=== PATIENT | female | born 1995 | race Caucasian/White ===

== ENCOUNTER 2025-06-24 10:39 | Outpatient (AMB) | payer OTHER, SELFPAY ==
--- OUTSIDE RECORDS SUMMARY | 2025-05-28 13:30 | XMS_ITS | Encounter Summary ---
Author Organization [facility] Address [address] [place] [address] Care Team Providers Care Cycle Consultant Name Role Phone Chandra Noonan MD Primary Care Provider [phone] Reason for Referral * Consultation (Urgent) - Closed Specialty Diagnoses / Procedures Referred By Contac t Referred To Contact Neurosurgery Diagnoses Chronic left-sided low back pain with left-sided sciatica Central stenosis of spinal canal Abnormal MRI Chandra Noonan MD [address] [place] [address] Phone: tel: fax: [facility] [place] [address] [place] [address] Phone: tel: fax: Referral ID Status Reason Start Date Expiration Date V isits Requested Visits Authorized [id number] Closed Specialty Services Required 06/19/2025 06/19/2026 1 1 * Consultation (Routine) - Closed Specialty Diagnoses / Procedures Referred By Contac t Referred To Contact Pain Medicine Diagnoses Chronic left-sided low back pain with left-sided sciatica Chandra Noonan MD [address] [place] [address] Phone: tel: fax: [facility] [address] [place] [address] [place] [address] fax: Referral ID Status Reason Start Date Expiration Date V isits Requested Visits Authorized [id number] Closed Specialty Services Required 05/28/2025 05/28/2026 1 1 * Imaging (Routine) - Pending Review Specialty Diagnoses / Procedures Referred By Contac t Referred To Contact Radiology Diagnoses Chronic left-sided low back pain with left-sided sciatica Procedures MR Lumbar Spine wo Contrast Chandra oNonan MD [address] [place] [address] Phone: tel: fax: [address] Phone: tel: Referral ID Status Reason Start Date Expiration Date V isits Requested Visits Authorized [id number] Pending Review 05/28/2025 05/28/2026 1 1 Reason for Visit * Reason Comments Back Pain Low back pain Encounter Details Date Type Department Care Team (Late st Contact Info) Description 05/28/2025 1:30 PM EDT Office Visit Adult Medicine [address] [phone] Chandra Noonan MD [address] [place] [address] Chronic left-sided low back pain with left-sided sciatica (Primary Dx); Elevated BP without diagnosis of hypertension; Central stenosis of spinal canal; Abnormal MRI Social History Tobacco Use Types Packs/Day Years Used Date Smoking Tobacco: Never Smokeless Tobacco: Never Tobacco Cessation:Counseling Given: Not Answered Alcohol Use Standard Drinks/Week Comments Not Currently 0 (1 standard drink = 0.6 oz pur e alcohol) Housing Instability Answer Date Recorde d Are you worried that in the next 2 months you may not have stable housing? No 01/31/2025 Food Access & Nutrition Answer Date Rec orded Do you have access to a vari ety of food including fruits and vegetables? Yes 01/31/2025 Access to Healthcare Answer Date Record ed Within the last 3 months, ho w many times did you visit the emergency department for your medical care? 0 01/31/2025 Health Literacy Answer Date Recorded How often do you need to hav e someone help you when you read instructions, pamphlets, or other written material from your doctor or pharmacy? Never 01/31/2025 Caregiver: How often do you need to have someone help you when you read instructions, pamphlets, or other written material from your doctor or pharmacy? Not on file 01/31/2025 Financial Risk Answer Date Recorded How hard is it for you to pa y for the very basics like food, housing, medical care, and air conditioning / heating? Not very hard 01/31/2025 Transportation Answer Date Recorded Has the lack of transportati on kept you from meetings, work, or from getting things needed for daily living? No Has the lack of transportati on kept you from medical appointments or from getting medications? No 01/31/2025 Social Isolation Answer Date Recorded How often do you feel lonely or isolated from th ose around you? Never 01/31/2025 Food Risk Answer Date Recorded Within the past 12 months we worried whether our food would run out before we got money to buy more. Never true 01/31/2025 Within the past 12 months th e food we bought just didn't last and we didn't have money to get more. Never true 01/31/2025 Dependent Care Answer Date Recorded Do you need help finding or paying for care for your loved ones. For example, childcare teacher or elderly care for an older adult? No 01/31/2025 Education Answer Date Recorded Do you think completing more education or training, like finishing a GED, going to college, or learning a trade, would be helpful for you? No 01/31/2025 Employment and Income Answer Date Recor ded During the last four weeks, have you been actively looking for work? No 01/31/2025 Living Situation Answer Date Recorded What is your living situation? 0 01/31/2025 Comments No Sex and Gender Information Value Date Recorded Sex Assigned at Not on file Legal Sex Female 10:43 PM EST Gender Identity Not on file Sexual Orientation Not on file documented as of this encounter Last Filed Vital Signs Vital Sign Reading Time Taken Comments Blood Pressure 135/85 05/28/2025 1:53 PM EDT Pulse 75 05/28/2025 1:40 PM EDT Temperature 35.7 C (96.3 F) 05/28/2025 1:40 PM EDT Respiratory Rate - - Oxygen Saturation - - Inhaled Oxygen Concentration - - Weight 89.4 kg (197 lb) 05/28/2025 1:40 PM EDT Height 162.6 cm (5' 4 ) 05/28/2025 1:40 PM EDT Body Mass Index 33.81 05/28/2025 1:40 PM EDT documented in this encounter Ordered Prescriptions Prescription Sig Dispense Quantity Refills Last Filled Start Date End Date tiZANidine (ZANAFLEX) 2 mg tablet Take 1 tablet (2 mg total) by mouth at bedtime as needed for muscle spasms. 30 tablet 2 05/28/2025 documented in this encounter Progress Notes * Chandra Noonan MD - 05/28/2025 1:30 PM EDT Patient is recommended lifestyle changes including 2 g sodium diet and regular exercise as tolerated. Patient is advised to check BP at home and maintain a BP log. Your goal is to maintain blood pressure less than 135/85. Please call our office if blood pressure more than 140/90, more than a coupleof times * Chandra Noonan MD - 05/28/2025 1:30 PM EDTAddended by: CHANDRA NOONAN on: 06/19/2025 08:49 PM Modules accepted: Orders * Chandra Noonan MD - 05/28/2025 1:30 PM EDT CHIEF COMPLAINT: Back Pain (Low back pain ) IDENTIFIER: Precious Kraft is a 30 y.o. old female. HPI: 30-year-old female patient with past medical history of Low backache, obesity, fatty liver, hyperlipidemia, allergic rhinitis and bunions, who is seen here for backache follow-up exam. I have seen this patient 3 months ago, at that time I have given the short course of prednisone for backache exacerbation. At that time she attended chiropractor. Now she complains of low backache radiating to the left lower extremity, pain level moderate in severity, she has been experiencing back pain on daily basis. She complains of intermittent tingling and numbness in the left lower extremity. No recent trauma. I recommended her to make an appointment with the physical therapy. I will refer her to the pain management. I will order MRI lumbar spine. I advised her to take Tylenol 650 mg/ibuprofen 600 mg 2-3 times a day and tizanidine 2 mg at night. Continue activity as tolerated. Her blood pressure is borderline high, asymptomatic. Patient is counseled for lifestyle changes andrecommended to check blood pressure at home. ROS: GENERAL: No malaise, significant weight loss or fever HEENT: No changes in hearing or vision, nose bleeds or other nasal problems NECK: No lumps RESPIRATORY: No cough, wheezing or shortness of breath CARDIOVASCULAR: No chest pain, or palpitations GI: No abdominal pain, hematochezia, melena : No dysuria, oliguria, polyuria, hematuria, flank pain MUSCULOSKELETAL: Chronic low backache SKIN: No lesions, rash or itching NEURO: No persistent headache, syncope, seizures, weakness or numbness PAST MEDICAL HISTORY: Patient Active Problem List Diagnosis Date Noted Anxiety 01/13/2021 Panic attacks 01/13/2021 Fatty liver 10/15/2020 Alcohol abuse 09/29/2020 Chronic diarrhea 09/29/2020 Abdominal bloating 09/29/2020 Hyperlipidemia 08/30/2019 Low back pain 02/12/2015 Allergic rhinitis 02/12/2015 Overweight (BMI 25.0-29.9) 02/11/2014 Scoliosis 12/06/2012 Nevus 05/04/2009 Past Surgical History: Procedure Laterality Date APPENDECTOMY 05/06 PROCEDURE: HISTORICAL APPENDECTOMY; COMMENT: with rupture UPPER GASTROINTESTINAL ENDOSCOPY 12/10/2020 PROCEDURE: UPPER GI ENDOSCOPY/EXAM; COMMENT: mild esophagitis WISDOM TOOTH EXTRACTION PROCEDURE: HISTORICAL WISDOM TEETH EXTRACTION SOCIAL HISTORY: Social History Tobacco Use Smoking status: Never Smokeless tobacco: Never Substance Use Topics Alcohol use: Not Currently Alcohol/week: 0.0 - 4.0 standard drinks of alcohol FAMILY HISTORY: Family History Problem Relation Name Age of Onset Alcohol/Drug Father percocet abuse Hypertension Father Diabetes Father Skin cancer Maternal Grandmother Heart attack Maternal Grandfather in 60s, HTN Diabetes Maternal Grandfather Blindness Neg Hx Cataracts Neg Hx Glaucoma Neg Hx Macular degeneration Neg Hx Strabismus Neg Hx Breast cancer Neg Hx Ovarian cancer Neg Hx Uterine cancer Neg Hx Family Status Relation Name Status Mother Alive healthy Father Alive healthy Sister Alive 1995 abilio Sister Alive 1998 darrel MGM Alive MGF Alive PGM Alive PGF Alive Neg Hx (Not Specified) No partnership data on file MEDICATIONS DISCONTINUED/REORDERED: Medications Discontinued During This Encounter Medication Reason tiZANidine (ZANAFLEX) 4 mg tablet Therapy completed ACTIVE MEDICATIONS: Outpatient Medications Marked as Taking for the 05/28/25 encounter (Office Visit) with Chandra Noonan MD Medication Sig Dispense Refill cholecalciferol (VITAMIN D-3) 50 mcg (2,000 unit) tablet Take 1 tablet (2,000 Units total) by mouth1 (one) time each day. LORazepam (ATIVAN) 0.5 mg tablet Take 0.5-1 Tablet by mouth daily as needed for Anxiety. 15 tablet 0 ALLERGIES: Allergies Allergen Reactions Apple Anaphylaxis PHYSICAL EXAM: Visit Vitals BP 135/85 Pulse 75 Temp 35.7 ??C (96.3 ??F) (Temporal) Ht 1.626 m (64 ) Wt 89.4 kg (197 lb) LMP 05/27/2025 BMI 33.81 kg/m?? OB Status Having periods Smoking Status Never BSA 1.94 m?? Physical Exam APPEARANCE: Alert and in no acute distress EYES: PERRLA, conjunctiva and sclera normal. EARS: External ears normal. NOSE/SINUS: Nares normal. MOUTH/THROAT: no erythema or exudates HEART: RRR with normal S1 and S2, no murmurs LUNG: clear to auscultation, no wheezing ABDOMEN: Bowel sounds normoactive, soft, non-tender and no palpable masses. BACK: Straight leg raise test is positive at 30 degrees on the left side EXTREMITIES: No edema NEURO: Awake, alert and oriented x 3. No focal neurological deficits SKIN: No rashes LABS: @CBC@ No results found for: NA , K , CL , CO2 , GLUCOSE , BUN , CREATININE , CALCIUM , PROT , ALBUMIN , BILITOT , AST , ALT , URICACID , PHOS , MG , ALKPHOS , CKTOTAL , EGFR Lab Results Component Value Date HGBA1C 5.3 06/29/2023 No results found for: TSH Lab Results Component Value Date CHOL 268 (A) 06/29/2023 TRIG 264 (A) 06/29/2023 HDL 54 06/29/2023 LDL 162 (A) 06/29/2023 IMAGING: Recent x-ray lumbar spine-mild spondylosis IMPRESSION: 1. Chronic left-sided low back pain with left-sided sciatica 2. Elevated BP without diagnosis of hypertension PLAN: I have seen this patient 3 months ago, at that time I have given the short course of prednisone forbackache exacerbation. At that time she attended chiropractor. Now she complains of low backache radiating to the left lower extremity, pain level moderate in severity, she has been experiencing backpain on daily basis. She complains of intermittent tingling and numbness in the left lower extremity. No recent trauma. I recommended her to make an appointment with the physical therapy. I will refer her to the pain management. I will order MRI lumbar spine. I advised her to take Tylenol 650 mg/ibuprofen 600 mg 2-3 times a day and tizanidine 2 mg at night. Continue activity as tolerated. Her blood pressure is borderline high, asymptomatic. Patient is counseled for lifestyle changes andrecommended to check blood pressure at home. Follow-up exam in 4 months or sooner as needed All questions and concerns were addressed. Precious Gibsonmerrickgary verbalizes understanding and agrees withthis treatment plan. Patient was reminded to call or return to the office if any new or existing problems arise. Orders Placed This Encounter Procedures MR Lumbar Spine wo Contrast Ambulatory referral to Pain Medicine MR LUMBAR SPINE WO CONTRAST AMB REFERRAL TO PAIN MEDICINE Chandra Noonan MD on 05/28/2025 at 2:00 PM EDT Today's documentation was made using voice recognition software.This note may contain grammatical errors secondary to this software. documented in this encounter Plan of Treatment Upcoming Encounters Date Type Department Care Team (Late st Contact Info) Description 09/18/2025 2:40 PM EST Consult Gastroenterology - [place] [address] [place] [address] Hernando Campo MD [address] [place] [phone] Scheduled Referrals Name Type Priority Associated Diagnoses Order Schedule Ambulatory referral to Pain Medicine Outpatient Referral Routine Chronic left-sided low back pain with left-sided sciatica 1 Occurrences starting 05/28/2025 until 05/28/2026 Ambulatory referral to Neurosurgery Outpatient Referral Routine Chronic left-sided low back pain with left-sided sciatica Central stenosis of spinal canal Abnormal MRI 1 Occurrences starting 06/19/2025 until 06/19/2026 documented as of this encounter Results * MR Lumbar Spine wo Contrast (06/19/2025 4:23 PM EDT) Anatomical Region Laterality Modality L-spine, Spine Magnetic Resonan ce 06/19/2025 5:27 PM EDT Impressions 06/19/2025 5:38 PM EDT Severe central spinal canal stenosis at L4-5 secondary to large central disc herniation. Moderate central spinal canal stenosis at L3-4 secondary to small central disc protrusion/herniation. Extruded disc at L5-S1. -------- FINAL REPORT -------- Dictated By: Yvrose Arambula Dictated Date: 06/19/2025 17:27 ET Assigned Physician: Yvrose Arambula Reviewed and Electronically Signed By: Yvrose Arambula Signed Date: 06/19/2025 17:38 ET Workstation ID: [id number] Transcribed By: Self Edit Transcribed Date: 06/19/2025 17:27 ET Narrative 06/19/2025 5:38 PM EDT MR LUMBAR SPINE WO CONTRAST MR OF THE LUMBAR SPINE WITHOUT CONTRAST HISTORY: Low back pain greater than 6 weeks. Left-sided sciatica. Technique: MR of the lumber spine was performed without contrast utilizing the standard departmental protocol. COMPARISON: Lumbar spine 04/23/2024. FINDINGS: Conus medullaris terminates at the [lower L1] level, and demonstrates normal signal. There is no abnormal thickening or clumping of the cauda equina nerve roots. There is normal alignment of the lumbar spine. Vertebral body heights are normal. There is signal change of the bone marrow the endplates at several levels consistent with degenerative change. There are Schmorl's nodes at multiple levels. At T12-L1, no significant disc herniation, central spinal canal stenosis or neuroforaminal narrowing is demonstrated on the sagittal sequences. At L1-L2, no significant disc herniation, central spinal canal stenosis or neuroforaminal narrowing. At L2-L3, no significant disc herniation, central spinal canal stenosis or neuroforaminal narrowing. At L3-L4, there is disc desiccation. There is disc bulging with small central disc protrusion/herniation which effaces the anterior aspect of the dural tube and causes left lateral recess narrowing. There is moderate central spinal canal stenosis. At L4-L5, there is disc space narrowing and disc desiccation. There is disc bulging with a 1.6 x 1.0 x 1.8 cm central disc herniation which extends both craniad and caudad from the disc space, compressing the dural tube, which measures 3 mm in AP diameter at this level. There is no CSF at this level. Severe central spinal canal stenosis. No neural foraminal narrowing At L5-S1, there is disc space narrowing and disc desiccation. There is extruded disc extending both craniad and caudad to the disc space is minimally effaces the anterior subarachnoid space. There is no neural foraminal narrowing or central spinal canal stenosis. Procedure Note Yvrose Arambula MD - 06/19/2025 MR LUMBAR SPINE WO CONTRAST MR OF THE LUMBAR SPINE WITHOUT CONTRAST HISTORY: Low back pain greater than 6 weeks. Left-sided sciatica. Technique: MR of the lumber spine was performed without contrast utilizingthe standard departmental protocol. COMPARISON: Lumbar spine 04/23/2024. FINDINGS: Conus medullaris terminates at the [lower L1] level, anddemonstrates normal signal. There is no abnormal thickening or clumping ofthe cauda equina nerve roots. There is normal alignment of the lumbarspine. Vertebral body heights are normal. There is signal change of thebone marrow the endplates at several levels consistent with degenerativechange. There are Schmorl's nodes at multiple levels. At T12-L1, no significant disc herniation, central spinal canal stenosisor neuroforaminal narrowing is demonstrated on the sagittal sequences. At L1-L2, no significant disc herniation, central spinal canal stenosis orneuroforaminal narrowing. At L2-L3, no significant disc herniation, central spinal canal stenosis orneuroforaminal narrowing. At L3-L4, there is disc desiccation. There is disc bulging with smallcentral disc protrusion/herniation which effaces the anterior aspect ofthe dural tube and causes left lateral recess narrowing. There is moderatecentral spinal canal stenosis. At L4-L5, there is disc space narrowing and disc desiccation. There isdisc bulging with a 1.6 x 1.0 x 1.8 cm central disc herniation whichextends both craniad and caudad from the disc space, compressing the duraltube, which measures 3 mm in AP diameter at this level. There is no CSF atthis level. Severe central spinal canal stenosis. No neural foraminalnarrowing At L5-S1, there is disc space narrowing and disc desiccation. There isextruded disc extending both craniad and caudad to the disc space isminimally effaces the anterior subarachnoid space. There is no neuralforaminal narrowing or central spinal canal stenosis. IMPRESSION: Severe central spinal canal stenosis at L4-5 secondary to large centraldisc herniation. Moderate central spinal canal stenosis at L3-4 secondaryto small central disc protrusion/herniation. Extruded disc at L5-S1. -------- FINAL REPORT -------- Dictated By: Yvrose Arambula Dictated Date: 06/19/2025 17:27 ET Assigned Physician: Yvrose Arambula Reviewed and Electronically Signed By: Yvrose Arambula Signed Date: 06/19/2025 17:38 ET Workstation ID: [id number] Transcribed By: Self Edit Transcribed Date: 06/19/2025 17:27 ET us Chandra Noonan MD IMG MRI PROCEDURES Final Re sult documented in this encounter Visit Diagnoses Diagnosis Chronic left-sided low back pain with left-sided sciatica- Primary Elevated BP without diagnosis of hypertension Central stenosis of spinal canal Abnormal MRI Other nonspecific (abnormal) findings on radiological and other examinations of body structure Chronic left-sided low back pain with left-sided sciatica documented in this encounter Discontinued Medications Medication Sig Discontinue Reason Start Date End Da te tiZANidine (ZANAFLEX) 4 mg tablet Take 1 tablet (4 mg total) by mouth at bedtime as needed for muscle spasms. Therapy completed 01/31/2025 05/28/2025 documented as of this encounter Additional Health Concerns Assessment Noted Time PHQ-9 Depression Total Score: 0 02/01/20 25 3:00 PM EDT documented as of this encounter Care Teams Cycle Consultant Relationship Specialty Start Date End Date Chandra Noonan MD [address] [place] [phone] PCP - General 02/02/23 documented as of this encounter
--- OUTSIDE RECORDS SUMMARY | 2025-06-19 15:48 | XMS_ITS | Encounter Summary ---
Author Organization [facility] Address [address] [place] [address] Care Team Providers Care Dermatology Sales Representative Name Role Phone Chandra Crawford MD Primary Care Provider [phone] Reason for Referral * Imaging (Routine) - Pending Review Specialty Diagnoses / Procedures Referred By Contac t Referred To Contact Radiology Diagnoses Chronic left-sided low back pain with left-sided sciatica Procedures MR Lumbar Spine wo Contrast Chandra Crawford MD [address] [place] [address] Phone: tel: fax: [address] Phone: tel: Referral ID Status Reason Start Date Expiration Date V isits Requested Visits Authorized [id number] Pending Review 05/28/2025 05/28/2026 1 1 Reason for Visit * Imaging (Routine) - Pending Review Specialty Diagnoses / Procedures Referred By Contac t Referred To Contact Radiology Diagnoses Chronic left-sided low back pain with left-sided sciatica Procedures MR Lumbar Spine wo Contrast Chandra Crawford MD [address] [place] [address] Phone: tel: fax: [facility] [address] [place] [address] Phone: tel: Referral ID Status Reason Start Date Expiration Date V isits Requested Visits Authorized [id number] Pending Review 05/28/2025 05/28/2026 1 1 Encounter Details Date Type Department Care Team (Latest Contact Info) Description 06/19/2025 3:48 PM EDT - 06/19/2025 11:59 PM EDT Hospital Encounter Radiology Department - [address] [phone] Chronic left-sided low back pain with left-sided sciatica Discharge Disposition: Home or Self Care Social History Tobacco Use Types Packs/Day Years Used Date Smoking Tobacco: Never Smokeless Tobacco: Never Alcohol Use Standard Drinks/Week Comments Not Currently [...] care for your loved ones. For example, child caregiver private home or elderly care for an older adult? [...] on file documented as of this encounter Medications at Time of Discharge cholecalciferol (VITAMIN D-3) 50 mcg (2,000 unit) tablet Take 1 tablet (2,000 Units total) by mouth 1 (one) time each day. 02/05/2023 LORazepam (ATIVAN) 0.5 mg tablet Take 0.5-1 Tablet by mouth daily as needed for Anxiety. 15 tablet 05/21/2025 naproxen (NAPROSYN) 500 mg tablet Take 1 tablet (500 mg total) by mouth 2 (two) times a day. 02/06/2025 tiZANidine (ZANAFLEX) 2 mg tablet Take 1 tablet (2 mg total) by mouth at bedtime as needed for muscle spasms. 30 tablet 2 05/28/2025 documented as of this encounter Discharge Disposition Disposition Code Departure Means Destination Home or Self Care documented in this encounter Progress Notes * Chandra Crawford MD - 06/19/2025 4:00 PM EDT Please call neurosurgery office for urgent referral and let them review the MRI scan results documented in this encounter Plan of Treatment Upcoming Encounters Date Type Department Care Team (Late st Contact Info) Description 09/18/2025 2:40 PM EST Consult Gastroenterology - [place] [address] [place] [address] Hernando Campo MD [address] [place] [phone] documented as of this encounter Procedures Procedure Name Priority Date/Time Associated Diagnosis Comments MR LUMBAR SPINE WO CONTRAST Routine 06/19/2025 4:23 PM EDT Chronic left-sided low back pain with left-sided sciatica documented in this encounter Results * MR Lumbar Spine [...] Signed Date: 06/19/2025 17:38 ET Workstation ID: [id number] Transcribed By: Self Edit Transcribed Date: 06/19/2025 [...] Signed Date: 06/19/2025 17:38 ET Workstation ID: [id number] Transcribed By: Self Edit Transcribed Date: 06/19/2025 17:27 ET us Chandra Crawford MD IMG MRI PROCEDURES Final Re sult documented in this encounter Visit Diagnoses Diagnosis Chronic left-sided low back pain with left-sided sciatica documented in this encounter Additional Health Concerns Assessment Noted Time PHQ-9 Depression Total Score: 0 02/01/20 25 3:00 PM EDT documented as of this encounter Care Teams Dermatology Sales Representative Relationship Specialty Start Date End Date Chandra Crawford MD [address] [place] [phone] PCP - General 02/02/23 documented as of this encounter
--- OUTSIDE RECORDS SUMMARY | 2025-06-20 14:00 | XMS_ITS | Encounter Summary ---
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, M48.00 - Central stenosis of spinal canal, R93.89 Abnormal MRI lower spine pain radiating to legs and hips for 4 to 5 months * Consultation (Urgent) - Closed Specialty Diagnoses / Procedures Referred By Deya payne Referred To Contact Neurosurgery Diagnoses Chronic left-sided low back pain with left-sided sciatica Central stenosis of spinal canal Abnormal MRI Chandra Crawford MD [address] [place] [address] Phone: tel: fax: Neurosurgery [address] [address] Phone: tel: fax: Referral ID Status Reason Start Date Expiration Date V isits Requested Visits Authorized [id number] Closed Specialty Services Required 06/19/2025 06/19/2026 1 1 Encounter Details Date Type Department Care Team ([facility] st Contact Info) Description 06/20/2025 2:00 PM EDT Consult Neurosurgery [address] [place] [address] Leila Brandt PA [address] [facility], [address] [place] [address] Chronic bilateral low back pain with bilateral sciatica (Primary Dx); Left-sided low back pain with left-sided sciatica, unspecified chronicity; Central stenosis of spinal canal; Abnormal MRI [...] Record ed Within the last 3 months, darci hope many times did you visit the emergency [...] for your loved ones. For example, child neurologist or elderly care for an older adult? [...] Sign Reading Time Taken Comments Blood Pressure - - Pulse - - Temperature - - Respiratory Rate - - Oxygen Saturation - - Inhaled Oxygen Concentration - - Weight 88.5 kg (195 lb) 06/20/2025 2:04 PM EDT Height 162.6 cm (5' 4 ) 06/20/2025 2:04 PM EDT Body Mass Index 33.47 06/20/2025 2:04 PM EDT documented in this encounter Progress Notes * HERBIE Penny - 06/21/2025 10:28 AM EDTAssociated Problem(s): Bilateral low back pain with bilateral sciatica Pt has h/o chronic LBP and sciatica that would flare up on and off, but usually stretching would help. About 4-5 months ago she had a severe sudden flare up with pain radiating form her back to b/l hips and legs, over time was worse L>R. Even with small movements she had severe pain, couldn't doany of her usual stretches, and was only comfortable lying down. Her pain at that time was 8- 9/10, 3 weeks ago started improving and now is 1-2/10. She notes the pain feels like it is inside the bones of her legs, she finds it hard to give specific dermatome but seems lateral legs when she shows her pain. She took Prednisone 01/31/25, takes occasional Ibuprofen, uses heat/ice regularly. She has PT Monday. No B/B issues. Her L/S MRI 06/19/25 [facility] shows multilevel degenerative changes including a large central L4-5 disc herniation causing significant stenosis. She has a smaller central disc bulge L3-4, L5-S1. We reviewed the MRI together on the computer. Ms. Kraft has a large L4-5 central disc herniation causing severe central stenosis, c/w her severe pain flare up radiating to b/l legs. Currently she is getting better and plans to try PT. We talked about L4-5 surgery, risks and benefits if she is not continuing to improve or worsens again, I told her I will review her MRI with Dr. Del Angel on Monday. I gave her Hibiclens to keep at home in case she does have surgery, we went over body wash instructions. All questions answered. She will call with any questions or concerns. * HERBIE Penny - 06/20/2025 2:00 PM EDT NEUROSURGERY NEW PATIENT CONSULTATION Date of Visit: 06/21/2025 Referring Physician: Chandra Crawford MD Primary Care Physician: Chandra Crawford MD RE: Precious Kraft : 1995 Chief Complaint Patient presents with Back Pain M54.42,G89.29 - Chronic left-sided low back pain with left-sided sciatica, M48.00 - Central stenosis of spinal canal, R93.89 Abnormal MRI lower spine pain radiating to legs and hips for 4 to 5 months Dear Chandra Lewis MD Thank you for referring Abena to our office today. Precious Kraft is a 30 y.o. female who presents to our office with h/o chronic LBP and sciatica that would flare up on and off, but usually stretching would help. About 4-5 months ago she had a severe sudden flare up with pain radiating form herback to b/l hips and legs, over time was worse L>R. Even with small movements she had severe pain, couldn't do any of her usual stretches, and was only comfortable lying down. Her pain at that time was 8-9/10, 3 weeks ago started improving and now is 1-2/10. She notes the pain feels like it is inside the bones of her legs, she finds it hard to give specific dermatome but seems lateral legs when she shows her pain. She took Prednisone 01/31/25, takes occasional Ibuprofen, uses heat/ice regularly. She has PT Monday. No B/B issues. Past Medical History: Diagnosis Date Acute appendicitis 05/2005 with rupture Fatty liver High cholesterol Hyperlipidemia Infectious mononucleosis 07/2001 Low back pain radiating to left leg 09/30/201309/13 - xrays neg, PT ref, clinoril and flexeril; resolved with stretching Menarche onset at 13 yo Streptococcal sore throat 11/30/2005 Unspecified otitis media 07/2003 UTI (lower urinary tract infection) Past Surgical History: Procedure Laterality Date APPENDECTOMY 05/06 with rupture UPPER GASTROINTESTINAL ENDOSCOPY 12/10/2020 mild esophagitis WISDOM TOOTH EXTRACTION Allergies Allergen Reactions Apple Anaphylaxis Current Outpatient Medications Medication Instructions cholecalciferol (VITAMIN D-3) 50 mcg (2,000 unit) tablet 1 tablet, Daily LORazepam (ATIVAN) 0.5 mg tablet Take 0.5-1 Tablet by mouth daily as needed for Anxiety. naproxen (NAPROSYN) 500 mg, 2 times daily tiZANidine (ZANAFLEX) 2 mg, oral, Nightly PRN Social History Tobacco Use Smoking status: Never Smokeless tobacco: Never Vaping Use Vaping status: Never Used Substance Use Topics Alcohol use: Not Currently Alcohol/week: 0.0 - 4.0 standard drinks of alcohol Drug use: No Social History Social History Narrative lives at home with mom , moms fihardy, 2 sisters , dad involved no pets 01/07/19 Lives with mother and her finace; sister, nephew and sister's boyfriend; one dog. Feels safe at home; no guns; has functional fire alarm / carbon monoxide detector s; wear seatbelt in the car. Performs monthly self breast exams. Family History Problem Relation Name Age of Onset Alcohol/Drug Father percocet abuse Hypertension Father Diabetes Father Skin cancer Maternal Grandmother Heart attack Maternal Grandfather in 60s, HTN Diabetes Maternal Grandfather Blindness Neg Hx Cataracts Neg Hx Glaucoma Neg Hx Macular degeneration Neg Hx Strabismus Neg Hx Breast cancer Neg Hx Ovarian cancer Neg Hx Uterine cancer Neg Hx ROS: + leg pain with walking, wears glasses, leg pain, arthritis Answers submitted by the patient for this visit: Back Pain Questionnaire (Submitted on 06/20/2025) Chief Complaint: Back pain Chronicity: chronic Onset: more than 1 month ago Frequency: 2 to 4 times per day Progression since onset: gradually improving Pain location: sacro-iliac Radiates to: left foot, left knee, left thigh, right foot, right knee, right thigh Pain - numeric: 9/10 Pain is: the same all the time abdominal pain: No bladder incontinence: No bowel incontinence: No chest pain: No fever: No headaches: No leg pain: Yes numbness: Yes perianal numbness: No dysuria: No paresis: No pelvic pain: No paresthesias: Yes tingling: Yes weakness: Yes weight loss: No Physical Exam: Pt is 5'4 and 195 lbs, she is awake and alert. Speech and comprehension is intact. Respirations are unlabored, heart has regular rate. Motor exam reveals 5/5 strength to resistence bilaterally in UE's and Le's. Negative SLR b/l but pt states a few weeks ago she would have had pain trying to straighten her leg L>R. Reflexes are WNL, no hyperreflexia, Weber's or clonus. No cutaneous abnormalit ies noted over the lumbar spine. + pain with palpation over the midline low back approx L4-5, L5-S1. Pt is ambulating independently. Imaging: Results for orders placed during the hospital encounter of 06/19/25 MR Lumbar Spine wo Contrast HISTORY: Low back pain greater than 6 weeks. Left-sided sciatica. COMPARISON: Lumbar spine 04/23/2024. FINDINGS: Conus medullaris terminates at the [lower L1] level, and demonstrates normal signal. There is no abnormal thickening or clumping of the cauda equina nerve roots. There is normal alignment of the lumbar spine. Vertebral body heights are normal. There is signal change of the bone marrow theendplates at several levels consistent with degenerative change. [...] disc desiccation. There is extruded disc extending bothcraniad and caudad to the disc space is minimally effaces the anterior subarachnoid space. There isno neural foraminal narrowing or central spinal canal stenosis. Impression Severe central spinal canal stenosis at L4-5 secondary to large central disc herniation. Moderate central spinal canal stenosis at L3-4 secondary to small central disc protrusion/herniation. Extrudeddisc at L5-S1. Assessment/Plan: Problem List Items Addressed This Visit Bilateral low back pain with bilateral sciatica - Primary Pt has h/o chronic LBP and sciatica that would flare up on and off, but usually stretching would help. About 4-5 months ago she had a severe sudden flare up with pain radiating form her back to b/l hips and legs, over time was worse L>R. Even with small movements she had severe pain, couldn't doany of her usual stretches, and was only comfortable lying down. Her pain at that time was 8- 9/10, 3 weeks ago started improving and now is 1-2/10. She notes the pain feels like it is inside the bones of her legs, she finds it hard to give specific dermatome but seems lateral legs when she shows her pain. She took Prednisone 01/31/25, takes occasional Ibuprofen, uses heat/ice regularly. She has PT Monday. No B/B issues. Her L/S MRI 06/19/25 [facility] shows multilevel degenerative changes including a large central L4-5 disc herniation causing significant stenosis. She has a smaller central disc bulge L3-4, L5-S1. We reviewed the MRI together on the computer. Ms. Kraft has a large L4-5 central disc herniation causing severe central stenosis, c/w her severe pain flare up radiating to b/l legs. Currently she is getting better and plans to try PT. We talked about L4-5 surgery, risks and benefits if she is not continuing to improve or worsens again, I told her I will review her MRI with Dr. Del Angel on Monday. I gave her Hibiclens to keep at home in case she does have surgery, we went over body wash instructions. All questions answered. She will call with any questions or concerns. Other Visit Diagnoses Central stenosis of spinal canal Abnormal MRI Thank you for allowing us to care for your patient. The total time spent was 50 mintues, time spent includes history, exam, imaging, plan, pt counseling. HERBIE Penny on 06/21/2025 at 10:28 AM EDT CC: Chandra Crawford MD Narayana R Lebaka, MD [facility] Neurosurgical [place] documented in this encounter Plan of Treatment Upcoming Encounters Date Type Department Care Team (Late st Contact Info) Description 09/18/2025 2:40 PM EST Consult Gastroenterology - [place] [address] [facility] [address] [facility] [address] [place] [phone] Hernando Campo MD [address] [place] [phone] documented as of this encounter Visit Diagnoses Diagnosis Chronic bilateral low back pain with bilateral sciatica- Primary Left-sided low back pain with left-sided sciatica, unspecified chronicity Central stenosis of spinal canal Abnormal MRI Other nonspecific (abnormal) findings on radiological and other examinations of body structure documented in this encounter Historical Medications * This list may reflect changes made after this encounter. naproxen (NAPROSYN) 500 mg tablet Take 1 tablet (500 mg total) by mouth 2 (two) times a day. 02/06/2025 added in this encounter Orders Outpatient Referral Count Last Ordered Date Fir st Ordered Date AMB REFERRAL TO NEUROSURGERY 1 06/20/2025 documented in this encounter Additional Health Concerns Assessment Noted Time PHQ-9 Depression Total Score: 0 02/01/20 25 3:00 PM EDT documented as of this encounter Care Teams Radio Interference Supervisor Relationship Specialty Start Date End Date Chandra Crawford MD [address] [place] [phone] PCP - General 02/02/23 documented as of this encounter
--- OUTSIDE RECORDS SUMMARY | 2025-06-23 11:30 | XMS_ITS | Encounter Summary ---
Author Organization [facility] Address [address] [place] [address] Care Team Providers Care Head Transfer Clerk Name Role Phone Chandra Crawford MD Primary Care Provider [phone] Reason for Visit * Consultation (Routine) - Authorized Specialty Diagnoses / Procedures Referred By Deya payne Referred To Contact Physical Therapy Diagnoses Chronic low back pain, unspecified back pain laterality, unspecified whether sciatica present Chandra Crawford MD [address] [place] [address] Phone: tel: fax: Outpatient Rehabilitation [address] Phone: tel: fax: Referral ID Status Reason Start Date Expiration Date Visits Requested Visits Authorized [id number] Authorized Specialty Services Required 05/21/2025 05/21/2026 9 9 Encounter Details Date Type Department Care Team (Latest Contact Info) Description 06/23/2025 11:30 AM EDT Evaluation Outpatient Rehabilitation [address] [phone] Dar Seo PT Chronic low back pain, unspecified back pain laterality, unspecified whether sciatica present Social History Tobacco Use Types Packs/Day Years [...] for your loved ones. For example, child care center assistant director or elderly care for an older adult? [...] on file documented as of this encounter Progress Notes * Dar Seo PT - 06/23/2025 11:30 AM EDT Images from the original note were not included. [facility] Rehabilitation - Outpatient Physical Therapy-[place] PHYSICAL THERAPY EVALUATION Date: 06/23/2025 Visit Number: 1 Patient Name: Precious Kraft : 1995 Age: 30 y.o. Gender: female Diagnosis: ICD-10-CM ICD-9-CM 1. Chronic low back pain, unspecified back pain laterality, unspecified whether sciatica present M54.50 724.2 Ambulatory referral to Physical Therapy and Athletic Training G89.29 338.29 Date of [] Onset/Injury/Surgery [x] Referral: 05/21/2025 Referring Provider: Chandra Crawford MD Insurance: Payor: [employer] [facility] [employer] / Plan: [employer] HMO / Product Type: *No Product type* / Patient identified by: Dar Seo PT Language: Speaks and understands Bahraini as preferred language with no translator and interpreter required Bahraini Chart Reviewed: Yes Medications: Current Outpatient Medications on File Prior to Visit Medication Sig Dispense Refill cholecalciferol (VITAMIN D-3) 50 mcg (2,000 unit) tablet Take 1 tablet (2,000 Units total) by mouth1 (one) time each day. LORazepam (ATIVAN) 0.5 mg tablet Take 0.5-1 Tablet by mouth daily as needed for Anxiety. 15 tablet 0 naproxen (NAPROSYN) 500 mg tablet Take 1 tablet (500 mg total) by mouth 2 (two) times a day. (Patient not taking: Reported on 06/20/2025) tiZANidine (ZANAFLEX) 2 mg tablet Take 1 tablet (2 mg total) by mouth at bedtime as needed for muscle spasms. 30 tablet 2 No current facility-administered medications on file prior to visit. Discussed current medications that may impact therapy. Medication list obtained and reviewed. Referto document in medical record. Advised Patient to contact MD with any questions regarding medications and importance of managing medication information. Past Medical History: has a past medical history of Acute appendicitis (05/2005), Fatty liver, High cholesterol, Hyperlipidemia, Infectious mononucleosis (07/2001), Low back pain radiating to left leg (09/30/2013), Menarche (onset at 13 yo), Streptococcal sore throat (11/30/2005), Unspecified otitis media (07/2003), andUTI (lower urinary tract infection). Past Surgical History: has a past surgical history that includes Appendectomy (05/06); [place] tooth extraction; and Upper gastrointestinal endoscopy (12/10/2020). Allergies: is allergic to apple. Precautions: none Concurrent Services: No Concurrent Services Previous Medical Care/Therapy: medications SUBJECTIVE History of Present Illness/Subjective Report: Almost 2 years ago now, was doing a deadlift and fel a pop in her back. Sxs resolved after a period of time. 5 mos ago, began to have pain again and someL LE pain felt like it was in the bone, onset w/o incident or injury. Saw Dr. Crawford on 01/31/25 [facility] Wellness Visit and was discussed. Messaged her MD in May, MRI ordered and performed on 05/28/25 (results below). Due to findings, appt was made w/ Neurosurgery and was seen by Reba Dee PA-C in Dr. Del Angel's office on 06/20/25. Surgery was discussed, Hibiclens was provided in case. Leila was discuss the case w/ Dr. Del Angel for POC going fwd. Here today for PT eval. Pain: LBP is better than it was. When I move, I feel that there is something off, where my hip and leg connect. No longer having pain on the R side. More stiff in the morning, takes me a while to stand up straight. Does not have leg pain today. Did have sxs 1 week ago after walking 7 miles at the [employer]. For a period of a couple of hrs that night,m had difficulty walking due to pain at the lateralthigh. Prior to that, did have episodes of pain to the ankle and some episodes of numbness and tiglian. The leg pain has not been constant for the past mos. Denies bowel/bladder dysfunction. Best: 10/11 Current: 10/11 Worst: 03/11 Quality: achy tight to sharp stab - Provocation: sitting too long (if > 30 min); prolonged walking (at [employer]); getting OOB; occasional waking; lifting her nephew (34#) - Alleviation: heating pad, ice pack, Epsom salt bath, feet up on couch, child's pose sometimes Current Functional Limitations: Reported by Patient: as above Prior Level of Function: no limitations Imaging: Narrative & Impression MR LUMBAR SPINE WO CONTRAST MR OF [...] foraminal narrowing or central spinal canal stenosis. IMPRESSION: Severe central spinal canal stenosis at L4-5 secondary to large central disc herniation. Moderate central spinal canal stenosis at L3-4 secondary to small central disc protrusion/herniation. Extrudeddisc at L5-S1. -------- FINAL REPORT -------- Dictated By: Yvrose Arambula Dictated Date: 06/19/2025 17:27 ET Assigned Physician: Yvrose Arambula Reviewed and Electronically Signed By: Yvrose Arambula Home Environment: Lives in a 2nd floor apartment w/ her Fiance. B railings. W/D is in the apartment. 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 At least for 4 hours, get up to the printer. Just got a sit<>Stand desk but not put together yet. Has site visits 2-3 x/wk. Is the patient at Risk for Falls: No Patient/Caregiver Goals: To feel better and get stronger. I was really working on my core strength when I got hurt. I was running too training for a 10k and I haven't run since. OBJECTIVE: Vitals: There were no vitals filed for this visit.; Functional Mobility/Gait: Sit<>stand w/ wt shifted to the R LE, use of 12 UE on the arm of the chair to rise. No observed difference in WB w/ clinic ambulation. Able to perform heel walk, toe walk 10 ft ea w/o deficit Extremity Dominance: UE: [x] Right [] Left [] Ambidextrous [] N/A LE: [x] Right [] Left [] Ambidextrous [] N/A Posture: Slight inc in L/S lordosis. Wt shifted to the R LE. Range of Motion: TRUNK ROM AROM T/L Flexion 12 3/4 in from the floor w/ LBP, L post leg sxs to post-lat calf T/L Extension 16 deg w/ midline L sxs T/L R SB 25 deg w/ L QL pull T/L L SB 32 deg w/ midline to R L5 pn T/L R ROT 35 deg T/L L ROT 35 deg w/ L LBP LE ROM AROM RIGHT AROM LEFT PROM RIGHT PROM LEFT Hip Flexion 105 deg 105 deg LBP Hip Extension 15 deg 15 deg Hip Abduction WNL WNL Hip Adduction Hip ER 42 deg 37 deg FIRM FIRM Hip IR 35 deg 35 deg Knee Extension 0 deg Able to achieve 0 deg seated w/ post lean of trunk, LBP, and post LE sxs to mid lower leg Knee Flexion WNL supine WNL supine Prone 118 deg FIRM 114 deg FIRM ankle DF 10 deg 10 deg ankle PF WNL WNL Ankle EV WNL WNL Ankle INV WNL WNL SLR (point of PPT of pelvis) 73 deg FIRM 52 deg LBP, L LE sxs. Empty end feel Strength: RIGHT LEFT Hip Flex (L1, L2) 4+/5 4/5 Hip Ext (S1) 4/5 4-/5 Hip ABDuction (L4, L5) 4-/5 4-/5 Hip ER (L5, S1) 4+/5 4+/5 Hip IR (L4, L5, S1) 4+/5 4+/5 knee Ext (L3, L4) 5/5 5/5 Knee Flex (S2) 5/5 4/5 w/ apprehension ankle DF (L4) 5/5 5/5 ankle EV (L5, S1) 5/5 5/5 ankle PF (S1) 5/ great toe ext (L5) 5/5 5/5 Trunk extension 4/5 Ab curl Up NT Seated ROT NT NT Special Testing: Seated Slump (+) L Kernig (+) L Patricks (-) Post Shear (+) L ASIS Gap (-) ASIS Compression (-) Sacral compression (+) L5-S1 sxs Abad (-) FADER (+) R inc L LBP; L good stretch Chinmay Test (+) B Elys (+) B mild Repeated flexion NT Repeated extension LB only Palpation: TTP L>R PL, L QL, L glute, L piriformis Hypo PA mobs throughout the L/S w/ sxs L3-5. No LE referral Reflexes: RIGHT LEFT Patellar 2+ 2+ Achilles 2+ 2+ Sensation: Intact to L/T B LE. TREATMENT INTERVENTION: Therapeutic exercise/ Manual: [] N/A Lumbar unloading 10x30 sec 10 sec rest phase Performed AJMES x 2 min after manual therapy. Reviewed prone over pillow to prone to JAMES to prone press up progressions. Lengthy discussion regarding proper postures- limiting PPT when sitting down. Avoiding bending w/ hinging at the waist is encouraged. JAMES, seated ext, standing ext to be performed after flexion/bending activities or when the L LE sxs occur and assess for change. Centralization of sxs discussed. Modalities: [x] N/A Patient Education: [x] Discussed, with patient, the evaluation findings, the recommended plan of care/goals, the importance of therapy and appointment compliance in order to achieve goals in a timely manner. Education provided: Reviewed postures and avoidances as above. Added JAMES and seated Trunk Ext/inc Lordosis to HEP (HEP2Go Code [id number])) Education Provided To: Patient utilizing Explanation, Demonstration, and Printed Material as mode(s) of education. Response to Education: Applied Knowledge, Verbal Understanding, and Demonstrated Skills ASSESSMENT: Precious Kraft is a 30 y.o. female presenting for outpatient physical therapy evaluation with complaints of LBP and int L LE sxs that have decreased considerably since the exacerbation of sxs approx5 mos ago. (+) MRI findings as above, pt is waiting to hear abt surgery but pt is hoping to avoid w/ PT. Significant clinical findings include: impaired ROM; (+) SLR/Kernigs/Seated Slump; hip and trunk weakness; spinal segmental hypomobility w/ localized spinal sxs w/o LE referral. Was able to heelwalk and toe walk w/o deficits. Skilled Physical therapy is medically necessary to address these findings and meet the established goals. Rehabilitation Potential: Rehab Potential: Condition Has Potential to Improve Motivation for Rehab: Good Support Structure: Good Learning Needs: Were Patient Learning needs assessed: Yes Learning Preferences: Demonstration Barriers to Learning: Other: Vision- wears glasses Response to Therapy Session: Good Comments: Pt was able to complete all eval procedures. Pt is w/o questions after instruction and review. LB sxs decreased w/ cumulative reps of manual lumbar unloading. Pt has a good understanding ofproper body mechanics and postures to help limit the likelihood of exacerbations as well as extension progressions. Short Term Goals (7-8 visits) Demo I w/ initial HEP, add neutral stab exs as able Increase HF mm length to achieve (-) Chinmay test Increase sitting bucky to >/= 1 hr w/o provocations Improve L LE dural tension to allow SLR PROM to >/= 70 deg Decrease max LBP to </= 3/10 at worst w/ and after cumulative ADLs, work Lpn Private Duty Goals: (12 visits) Demo I w/ final HEP of stab and strengthening exs Increase sitting to as long as required at work Increase hip, trunk ext MMT to 5/5 throughout Achieve painfree and full trunk ROM all planes Deny LE LE sxs after and w/ usual ADLs Walk x >/= 2 miles for general health w/o LBP/L LE sxs PLAN: POC Development/Review: Initial Evaluation; Participants: Patient Skilled Therapy Plan Required: YES- Reasons for Rehab and Medical Necessity -- Return to Premorbid Environment, Reduce Need for Assist with Functional Activity/ADL's/Mobility, and Function in Community Planned Therapy Interventions: Hot Pack, Manual Therapy, Mechanical Traction, and Therapeutic Exercise Recommended Consults: none Equipment Recommended: none; Equipment Provided: none Frequency/Duration: 2x/wk x 12 visits BILLING: Interventions Time Entry: Modalities: Therapeutic procedures: Manual Therapy Time Entry: 12 Medium Complexity Eval Time Entry: 39 TOTAL TREATMENT TIME: 51 Minutes Evaluation Medium Complexity Justification ::: A history of present problem with 1 - 2 personal factors and/or co-morbidities that impact the plan of care, An examination of body systems using standardized tests and measures in addressing a total of 3 or more elements from any of the following bodystructures and functions, activity limitations, and/or participation restrictions, and An evolving clinical presentation with changing characteristics Documentation completed by Dar Seo PT OUTPATIENT REHABILITATION [address] [address] Dept: [phone] Dept PATIENT NAME: Precious Kraft : 1995 Referring provider : Chandra Crawford MD documented in this encounter Plan of Treatment Upcoming Encounters Date Type Department Care Team (Late st Contact Info) Description 09/18/2025 2:40 PM EST Consult Gastroenterology - [place] [address] [facility] [address] [place] [id number] Hernando Campo MD [address] [place] [phone] documented as of this encounter Visit Diagnoses Diagnosis Chronic low back pain, unspecified back pain laterality, unspecified whether sciatica present documented in this encounter Orders Outpatient Referral Count Last Ordered Date Fir st Ordered Date AMB REFERRAL TO [facility]YSICAL [facility] 1 06/23/2025 documented in this encounter Additional Health Concerns Assessment Noted Time PHQ-9 Depression Total Score: 0 02/01/20 25 3:00 PM EDT documented as of this encounter Care Teams Head Transfer Clerk Relationship Specialty Start Date End Date Chandra Crawford MD [address] [place] [phone] PCP - General 02/02/23 documented as of this encounter
--- NOTE | 2025-06-24 10:42 | A.OFFVIS_ITS ---
Vital Signs 06/24/25 10:46 Height 5 ft 4 in Weight 200 lb 2 oz BMI 34.3 BP 139/94 H Blood Pressure Location Rt brachial Position Sitting Pulse 80 Pulse Source Pulse Oximeter Pulse Oximetry (%) 99 Oxygen Delivery Method Room Air Intake Visit Reasons: CHRONIC LEFT SIDED LOW BACK PAIN Intake Note: Pain today 11/11 Operator Weapon Locating Radar Required: No Accompanied by: Self / Same As Patient Allergies No Known Allergies Allergy (Verified 06/24/25 10:45) HPI Comments Details: The patient is a 30-year-old female presenting with lower back pain and left- sided radiculopathy. The pain began approximately 4-5 months ago, although a similar episode occurred two years prior during a deadlift exercise, resulting in immediate pain and immobility. The initial episode resolved after about a month, but more recent back pain returned without a specific inciting event. The current pain radiates down the back and side of the left leg to anterior thigh and into the ankle, occasionally accompanied by numbness and tingling. At times, her back pain radiates to both of her legs posteriorly. The pain was severe, rated at 8-9 out of 10, and persisted daily for four and a half months before starting to subside three weeks ago. Interventions included heat and ice application as stretching exacerbated the pain. The patient was prescribed a prednisone taper, which did not alleviate the symptoms, and has been using ibuprofen occasionally for severe pain. An MRI conducted at [facility] on June 19 revealed severe central spinal stenosis at L4-L5 due to a large central disc herniation, and moderate central spinal stenosis at L3-L4 with a small disc protrusion. The patient consulted with Dr. Del Angel, Neurosurgeon at [facility] on 06/20/25 who did not recommend surgery but discussed less invasive options such as clipping the hernia or bulge. Physical therapy at [facility] was initiated recently, and the patient is advised to avoid activities that may exacerbate the condition. - Onset: Pain began five months ago, with a similar episode two years prior during a deadlift. - Quality: Severe, rated 8-9 out of 10, radiating down the back of the left buttock, thigh, lateral leg to the ankle; stabbing, sharp, shooting, pinching, crushing, tingling, dull, sore, aching, tiring, exhausting, tightness - Exacerbating factors: Stretching worsens the pain. - Relieving factors: Heat and ice application provide some relief. - Interference: Pain interferes with daily activities, requiring assistance during severe episodes. - Affect: Pain impacts daily activities and requires assistance during severe episodes. - Analgesia: Current pain level is 2 out of 10; Ibuprofen used occasionally for severe pain. - Adverse Effects: No adverse effects from ibuprofen reported. - Activities of Daily Living: Pain interferes with daily activities, mobility and sleep; physical therapy initiated on 06/23/25. - Aberrant Drug Related Behaviors: No aberrant behaviors reported. Oswestry Low Back Pain Disability Score=21 [facility] Medical History (Updated 06/24/25 @ 11:32 by HUDSON Reis) Nevus Scoliosis Allergic rhinitis Low back pain Hyperlipidemia Abdominal bloating Chronic diarrhea Alcohol abuse Fatty liver Panic attacks Anxiety Surgical History (Updated 06/24/25 @ 11:09 by Nicole Araujo) Hx of appendectomy Social History (Updated 06/24/25 @ 10:46 by Nicole Araujo) Alcohol intake: current Alcohol type: wine Patient Tobacco Use Status: Never used Tobacco Use of substances other than those prescribed or required for medical reasons: No Review of Systems Const Details: - Musculoskeletal: Reports moderate to severe lower back pain radiating to the left leg, with occasional numbness and tingling. - Neurological: Denies weakness, foot drop, urinary incontinence or bowel dysfunction or saddle anesthesia. All systems reviewed & are unremarkable except as noted in HPI and below Physical Exam Vital Signs: Last Vital Signs Pulse 80 06/24/25 10:46 BP 139/94 H 06/24/25 10:46 Pulse Ox 99 06/24/25 10:46 Oxygen Delivery Method Room Air 06/24/25 10:46 BMI result Body Mass Index 34.3 General: Appears afebrile. No acute distress. Alert and oriented. Mood and affect appropriate. Follows and participates in conversation appropriately. Respiratory effort is unlabored. No cough. Able to transition from sit to stand unassisted. Ambulates with bilaterally normal heel strike and toe off, increased left sided back pain with heel standing. General: Yes no CVA tenderness Back/Spine/Pelvis Other: Patient is able to walk and stand on heels and tip toes with mild difficulties with heel standing on the left with increased back pain otherwise demonstrating good motor tone. Normal gait, no limping. Lumbar limited flexion forward and bending reproduces moderate pain, extension is intact and does not reproduce significant pain. Demonstrates 5/5 right and 4/5 left strength of quadriceps bilaterally as well as flexion/dorsiflexion of bilateral feet against resistance. 2+ pedal pulses bilaterally. Straight leg rise with dorsiflexion positive on the left. +2 patellar and achilles reflexes bilaterally. Facet loading test positive bilaterally. Laquita sign, Rey?s, Pelvic compression and Stinchfield tests are negative bilaterally. No groin pain with I/E hip rot ations. Significant paraspinals tenderness left side, mid and lower back. Valsalva maneuver is positive. Back: no CVA tenderness Cervical Spine: cervical ROM normal, No cervical muscular tenderness, No Cervical spine tenderness and No step off deformity Thoracic/Lumbar Spine: thoracic and lumbar spine normal to inspection, No Thoracic/lumbar spine scar(s), Lasegue's sign positive on the left and localized, pain with thoraco-lumbar ROM, paraspinal muscle tenderness on the left in the mid lumbar and in the lower lumbar, thoraco-lumbar ROM limited, No thoracic spinal tenderness and lumbar spinal tenderness (L4-S1) Pelvis: sciatic notch tenderness on the left Sacroiliac joints: bilaterally nontender Extrem General: Yes capillary refill normal, Yes no clubbing, cyanosis or edema and Yes no calf tenderness Results Reviewed Results Reviewed: Lumbar MRI at [facility] 06/19/25 IMPRESSION: Severe central spinal canal stenosis at L4-L5 secondary to large central disc herniation. Moderate central spinal canal stenosis at L3-L4 secondary to small central disc protrusion/herniation. Extruded disc at L5-S1. Assessment & Plan Assessment & Plan (1) Herniation of lumbar intervertebral disc with radiculopathy: Code(s): M51.16 - Intervertebral disc disorders with radiculopathy, lumbar region Category: Medical (2) Lumbar back pain with radiculopathy affecting left lower extremity: Code(s): M54.16 - Radiculopathy, lumbar region Category: Medical (3) Low back pain: Code(s): M54.50 - Low back pain, unspecified Category: Medical Plan The plan involves continued monitoring of the patient's condition, as the pain level has decreased to 2 out of 10, suggesting improvement. Physical therapy has been initiated to aid in recovery, with emphasis on avoiding activities that may exacerbate the condition, such as bending and twisting or heavy lifting. The patient is advised to continue using Ibuprofen, Tylenol, muscle relaxant, heat therapy for pain management as needed and to follow up with Dr. Del Angel for further evaluation and potential intervention such as therapeutic BERNARD if necessary. Patient is aware to call if pain worsens or if she develops any red flag symptoms to seek emergency care. Patient denies any cauda equina syndrome symptoms at this time. All questions and concerns have been answered and patient agreed with the treatment plan. Follow up as needed. Patient was informed and verbally consented to the use of an ambient scribe for clinic note documentation during this visit. Coding Level of Care Code New Pt Level 4 (32461) Diagnoses Herniation of lumbar intervertebral disc with radiculopathy M51.16 Lumbar back pain with radiculopathy affecting left lower extremity M54.16 Low back pain M54.50
[2025-06-24 10:46] VITALS: BP 139/94; PULSE 80; O2SAT 99; BMI 34.3
--- OUTSIDE RECORDS SUMMARY | 2025-06-24 13:03 | XMS_ITS | Encounter Summary ---
Author Organization [facility] Address [address] [place] [address] Care Team Providers Care Supervisor Grips Name Role Phone Chandra Crawford MD Primary Care Provider [phone] Encounter Details Date Type Department Care Team ([facility] Contact Info) Description 06/24/2025 Telephone Neurosurgery [facility] [address] [phone] Leila Brandt PA [address] [place] [address] [phone] Social History Tobacco Use Types Packs/Day Years [...] care for your loved ones. 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 I reviewed her MRI with Dr. Del Angel yesterday, Dr. Del Angel states she has a large central disc herniation, however I reviewed symptoms with Dr. Del Angel, herleft leg is worse than her right, Dr. Del Angel states she could do left L4-5 minimally invasive discectomy. I will confirm with patient that left leg is her worst leg. I also reviewed PT eval note from yesterday. documented in this encounter Plan of Treatment Upcoming Encounters Date Type Department Care Team (Late st Contact Info) Description 09/18/2025 2:40 PM EST Consult Gastroenterology - [place] [address] [facility] [address] [place] [address] Hernando Campo MD [address] [place] [address] documented as of this encounter Visit Diagnoses Not on filedocumented in this encounter Additional Health Concerns Assessment Noted Time PHQ-9 Depression Total Score: 0 02/01/20 25 3:00 PM EDT documented as of this encounter Care Teams Supervisor Grips Relationship Specialty Start Date End Date Chandra Crawford MD [address] [place] [phone] PCP - General 02/02/23 documented as of this encounter
--- OUTSIDE RECORDS SUMMARY | 2025-06-24 13:03 | XMS_ITS | Encounter Summary ---
Author Organization [facility] Address [address] [place] [address] Care Team Providers Care Cephalometric Analyst Name Role Phone Chandra Crawford MD Primary Care Provider Unav ailable Encounter Details Date Type Department Care Team (Late st Contact Info) Description 06/03/2024 Scanned Document [facility] 80 [facility] [address] [place] [address] Provider, Generic Social History Tobacco Use Types Packs/Day Years Used Date Smoking Tobacco: Never Smokeless Tobacco: Never Alcohol Use Standard Drinks/Week Comments Not Currently 0 (1 standard drink = 0.6 oz pur e alcohol) Comments Unknown Sex and Gender Information Value Date Recorded Sex Assigned at Not on file Legal Sex Female 10:35 AM EDT Gender Identity Not on file Sexual Orientation Not on file documented as of this encounter Plan of Treatment Not on file documented as of this encounter Visit Diagnoses Not on filedocumented in this encounter Care Teams Cephalometric Analyst Relationship Specialty Start Date End Date Chandra Crawford MD PCP - General Medicine Hospitalist 11/29/24 documented as of this encounter
--- OUTSIDE RECORDS SUMMARY | 2025-06-24 13:03 | XMS_ITS | Encounter Summary ---
Author Organization [facility] Address [address] [place] [address] Care Team Providers Care Vice President & General Manager [employer] Name Role Phone Chandra Crawford MD Primary Care Provider Unav ailable Encounter Details Date Type Department Care Team (Late st Contact Info) Description 06/04/2024 Scanned Document [facility] 80 [facility] [address] [place] [address] Provider, Generic Social History Tobacco [...] on filedocumented in this encounter Care Teams Vice President & General Manager [employer] Relationship Specialty Start Date End Date Chandra Crawford MD PCP - General Medicine Hospitalist 11/29/24 documented as of this encounter
--- OUTSIDE RECORDS SUMMARY | 2025-06-24 13:03 | XMS_ITS | Clinical Summary ---
Author Organization [facility] [address] [place] [address] [place] [phone] Phone Care Team Providers Care Terrazzo Worker Helper Name Role Phone Chandra Crawford MD Primary Care Provider [phone] Allergies Active Allergy Reactions Criticality Noted Date Comments Apple Anaphylaxis High 05/28/2025 Medications cholecalciferol (VITAMIN D-3) 50 mcg (2,000 unit) tablet Take 1 tablet (2,000 Units total) by mouth 1 (one) time each day. 3 Active LORazepam (ATIVAN) 0.5 mg tablet Take 0.5-1 Tablet by mouth daily as needed for Anxiety. 15 tablet 5 Active tiZANidine (ZANAFLEX) 2 mg tablet Take 1 tablet (2 mg total) by mouth at bedtime as needed for muscle spasms. 30 tablet 2 5 Active naproxen (NAPROSYN) 500 mg tablet Take 1 tablet (500 mg total) by mouth 2 (two) times a day. 5 Active tiZANidine (ZANAFLEX) 4 mg tablet Take 1 tablet (4 mg total) by mouth at bedtime as needed for muscle spasms. 30 tablet 5 05/28/20 25 Discontinu ed(Therapy completed) Active Problems Problem Noted Date Diagnosed Date Anxiety 01/13/2021 Panic attacks 01/13/2021 Fatty liver 10/15/2020 Alcohol abuse 09/29/2020 Chronic diarrhea 09/29/2020 Abdominal bloating 09/29/2020 Hyperlipidemia 08/30/2019 Bilateral low back pain with bilateral sciatica 02/12/2015 Overview (08/15/2024): 09/13 - xrays neg, ref to PT Assessment & Plan (06/21/2025 10:28 AM EDT): Pt has h/o chronic LBP and sciatica [...] No B/B issues. Her L/S MRI 06/19/25 [facility] shows multilevel degenerative changes including a large central L4-5 disc herniation causing significant stenosis. She has a smaller central disc bulge L3-4, L5-S1. We reviewed the MRI together on the computer. Ms. Fraire has a large L4-5 central disc herniation [...] will call with any questions or concerns. Allergic rhinitis 02/12/2015 Overview (08/15/2024): Zyrtec and alaway gtts 02/12 Overweight (BMI 25.0-29.9) 02/11/2014 Scoliosis 12/06/2012 Overview (08/15/2024): Mild at PE 12/12 Nevus 05/04/2009 Overview (08/15/2024): Ref to derm 03/10, 12/12, 02/12 Encounters Date Type Department Care Team Description 06/24/2025 Telephone Neurosurgery [address] [phone] Leila Brandt PA 06/23/2025 11:30 AM EDT Evaluation Outpatient Rehabilitation - [address] [phone] Dar Seo, PT Chronic low back pain, unspecified back pain laterality, unspecified whether sciatica present 06/23/2025 Plan of Care Documentation Outpatient Rehabilitation - [address] [phone] 06/20/2025 2:00 PM EDT Consult [address] [phone] Leila Brandt PA Chronic bilateral low back pain with bilateral sciatica (Primary Dx); Left-sided low back pain with left-sided sciatica, unspecified chronicity; Central stenosis of spinal canal; Abnormal MRI 06/19/2025 3:48 PM EDT - 06/19/2025 11:59 PM EDT Hospital Encounter Radiology Department - [address] [phone] Chronic left-sided low back pain with left-sided sciatica Discharge Disposition: Home or Self Care 05/28/2025 1:30 PM EDT Office Visit Adult Medicine [address] [phone] Chandra Crawford MD Chronic left-sided low back pain with left-sided sciatica (Primary Dx); Elevated BP without diagnosis of hypertension; Central stenosis of spinal canal; Abnormal MRI 05/22/2025 Telephone Adult Medicine [address] [phone] Chandra Crawford MD from Last 3 Months Immunizations Name Administration Dates Next Due DTP 04/26/1999, 6,1994,06/13 [id number] (Pentacel) 2mo to less than 5yo 07/04/1995,1994,1994,03/31 HPV, Quadrivalent 12/10/2008,06/06/2008,03/14/20 08 Hepatitis B Pediatric (Enger ix B; Recombivax HB) to less than 20 yo 1995,1994,1994 Influenza trivalent, 0.5mL, preservative free (Fluarix; FluLaval; Fluzone) ages 6mo and older (Afluria) 3 years and older 07/20/2011 MMR, measles mumps and rubel la Live (Priorix; M-M-R II) 12mo and older 07/06/1995,1994 Meningococcal MCV4P 12/06/2012,03/14/2008 OPV 01/26/1996, 4,1994,03/31 Td Tetanus diptheria (Tdvax) 7yo and older 03/02/2005 Tdap Tetanus diptheria acell ular pertussis (Boostrix; Adacel) 7yo and older 06/29/2023,05/27/2009 Varicella live (Varivax) 12m o and older 07/20/2011,06/03/1999 Surgical History Surgery Date Site/Laterality Comments APPENDECTOMY 05/06 with rupture WISDOM TOOTH EXTRACTION UPPER GASTROINTESTINAL ENDOSCOPY 12/10/2020 mild esophagitis Medical History Medical History Date Comments Infectious mononucleosis 07/2001 Streptococcal sore throat 11/30/2005 Unspecified otitis media 07/2003 Acute appendicitis 05/2005 with rupture Menarche onset at 13 yo UTI (lower urinary tract infection) Low back pain radiating to left leg 09/30/201309/13 - xrays neg, PT ref, clinoril and flexeril; resolved with stretching Hyperlipidemia Fatty liver High cholesterol Family History Medical History Relation Name Comments Alcohol/Drug Father percocet abuse Diabetes Father Hypertension Father Diabetes Maternal Grandfather Heart attack Maternal Grandfather in 60s, HTN Skin cancer Maternal Grandmother Blindness Neg Hx Breast cancer Neg Hx Cataracts Neg Hx Glaucoma Neg Hx Macular degeneration Neg Hx Ovarian cancer Neg Hx Strabismus Neg Hx Uterine cancer Neg Hx Relation Name Status Comments Father Alive healthy Maternal Grandfather Alive Maternal Grandmother Alive Mother Alive healthy Paternal Grandfather Alive Paternal Grandmother Alive Sister 1 Alive 1995 abilio Sister 2 Alive 1998 darrel Social History Tobacco Use Types Packs/Day Years [...] your loved ones. For example, child care associate teacher or elderly care for an older [...] on file Sexual Orientation Not on file Obstetrics History Last Filed Vital Signs Vital Sign Reading Time Taken Comments Blood Pressure 135/85 05/28/2025 1:53 PM EDT Pulse 75 05/28/2025 1:40 PM EDT Temperature 35.7 C (96.3 F) 05/28/2025 1:40 PM EDT Respiratory Rate 14 01/31/2025 2:56 PM EDT Oxygen Saturation 98% 01/31/2025 2:56 PM EDT Inhaled Oxygen Concentration - - Weight 88.5 kg (195 lb) 06/20/2025 2:04 PM EDT Height 162.6 cm (5' 4 ) 06/20/2025 2:04 PM EDT Body Mass Index 33.47 06/20/2025 2:04 PM EDT Plan of Treatment Upcoming Encounters Date Type Department Care Team (Late st Contact Info) Description 09/18/2025 2:40 PM EST Consult Gastroenterology - [place] [address] [place] [phone] Hernando Campo MD [address] [place] [phone] Health Maintenance Due Date Last Done Comments Hepatitis A Vaccines (1 of 2 - Risk 2-dose series) 2013 Pneumococcal Vaccine: Pediatrics (0 to 5 Years) and At-Risk Patients (6 to 49 Years) (1 of 2 - PCV) 2013 COVID-19 Vaccine (1 - season) 2025 Influenza Vaccine (#1) 2025 07/20/2011 Social Influencers of Health Screening 01/31/2026 01/31/2025 Cervical Cancer Screening: HPV 03/22/2026 03/22/2021 Cholesterol Screening (Lipid Panel) 05/28/2030 05/28/2025, 06/29/2023 DTaP,Tdap,and Td Vaccines (9 - Td or Tdap) 06/29/2033 06/29/2023, 05/27/2009, 03/02/2005, Additional history exists RSV Immunization Adult Patients (1 - 1-dose 75+ series) 2069 Hepatitis B Vaccines Completed 1995, 1994, 1994 HIB Vaccines Completed 07/04/1995, 11/1994, 1994, Additional history exists MMR Vaccines Completed 07/06/1995, 1994 IPV Vaccines Completed 01/26/1996, 11/1994, 1994, Additional history exists HPV Vaccines Completed 12/10/2008, 01/2008, 03/14/2008 Varicella Vaccines Completed 07/20/2011, 06/03/1999 Meningococcal ACWY Vaccine Completed 12/06/2012, HIV Screening Completed 03/16/2021 Hepatitis C Screening Completed 03/16/2021 Depression Screening Completed 01/31/2025 Meningococcal B Vaccine Aged Out No l onger eligible based on patient's age to complete this topic RSV Immunization Patients Under 20 months Aged Out No longer eligible based on patient's age to complete this topic Procedures Procedure Name Priority Date/Time Associated Diagnosis Comments MR LUMBAR SPINE WO CONTRAST Routine 06/19/2025 4:23 PM EDT Chronic left-sided low back pain with left-sided sciatica CBC WITH AUTO DIFFERENTIAL Routine 05/28/2025 2:31 PM EDT Physical exam Spondylosis of lumbar region without myelopathy or radiculopathy Mixed hyperlipidemia Fatty liver Allergic rhinitis, unspecified seasonality, unspecified trigger Screening for deficiency anemia Screening for diabetes mellitus (DM) Screening for thyroid disorder CBC AND DIFFERENTIAL Routine 05/28/2025 2:31 PM EDT Physical exam Spondylosis of lumbar region without myelopathy or radiculopathy Mixed hyperlipidemia Fatty liver Allergic rhinitis, unspecified seasonality, unspecified trigger Screening for deficiency anemia Screening for diabetes mellitus (DM) Screening for thyroid disorder COMPREHENSIVE METABOLIC PANEL Routine 05/28/2025 2:31 PM EDT Physical exam Spondylosis of lumbar region without myelopathy or radiculopathy Mixed hyperlipidemia Fatty liver Allergic rhinitis, unspecified seasonality, unspecified trigger Screening for deficiency anemia Screening for diabetes mellitus (DM) Screening for thyroid disorder LIPID PANEL WITH REFLEX TO DIRECT LDL Routine 05/28/2025 2:31 PM EDT Physical exam Spondylosis of lumbar region without myelopathy or radiculopathy Mixed hyperlipidemia Fatty liver Allergic rhinitis, unspecified seasonality, unspecified trigger Screening for deficiency anemia Screening for diabetes mellitus (DM) Screening for thyroid disorder HEMOGLOBIN A1C Routine 05/28/2025 2:31 PM EDT Physical exam Spondylosis of lumbar region without myelopathy or radiculopathy Mixed hyperlipidemia Fatty liver Allergic rhinitis, unspecified seasonality, unspecified trigger Screening for deficiency anemia Screening for diabetes mellitus (DM) Screening for thyroid disorder THYROID STIMULATING HORMONE WITH REFLEX TO FREE T4 AND FREE T3 Routine 05/28/2025 2:31 PM EDT Physical exam Spondylosis of lumbar region without myelopathy or radiculopathy Mixed hyperlipidemia Fatty liver Allergic rhinitis, unspecified seasonality, unspecified trigger Screening for deficiency anemia Screening for diabetes mellitus (DM) Screening for thyroid disorder HM HPV Routine 03/22/2021 HM HEPATITIS C SCREENING Routine 03/16/2021 HM HIV SCREENING Routine 03/16/2021 from Last 3 Months or Most Recently Relevant to Health Maintenance Results * MR Lumbar Spine wo Contrast [...] Signed Date: 06/19/2025 17:38 ET Workstation ID: [id number] Transcribed By: Self Edit Transcribed Date: 06/19/2025 [...] Signed Date: 06/19/2025 17:38 ET Workstation ID: [id number] Transcribed By: Self Edit Transcribed Date: 06/19/2025 17:27 ET Chandra Crawford MD IMG MRI PROCEDURES Final Re sult * Thyroid stimulating hormone with reflex to free t4 and free t3 (05/28/2025 2:31 PM EDT) [facility] TSH 1.13 0.40 - 4.00 mcIU/mL LAB CHEMISTRY METHOD 05/28/2025 5:37 PM EDT [facility] Blood Venous blood specimen / Unknown Venipuncture / Unknown 05/28/2025 2:31 PM EDT 05/28/2025 2:31 PM EDT Chandra Crawford MD LAB BLOOD ORDERABLES Final Result [facility] [address] [place] [address], [place] [phone] * (ABNORMAL) Lipid panel with reflex to direct LDL (05/28/2025 2:31 PM EDT) [facility] Cholesterol 325(H) 0 - 200 mg/dL LAB CHEMISTRY METHOD 05/28/2025 5:08 PM EDT [facility] Triglycerides 211(H) 0 - 150 mg/dL LAB CHEMISTRY METHOD 05/28/2025 5:08 PM EDT [facility] HDL 54 >=40 mg/dL LAB CHEMISTRY METHOD 05/28/2025 5:08 PM EDT [facility] LDL Calculated 229(H) 0 - 100 mg/dL LAB CHEMISTRY METHOD 05/28/2025 5:08 PM EDT [facility] Comment:Estimated LDL Calcul ated using equation: Total cholesterol - HDL cholesterol - (Triglycerides/5) VLDL Cholesterol Uvaldo 42.2 mg/dL LAB CHEMISTRY METHOD 05/28/2025 5:08 PM EDT [facility] Non HDL Chol. (LDL+VLDL) 271(H) <145 mg/dL LAB CHEMISTRY METHOD 05/28/2025 5:08 PM EDT [facility] Chol/HDL Ratio 6.0(H) 0.0 - 4.4 LAB CHEMISTRY METHOD 05/28/2025 5:08 PM EDT [facility] Blood Venous blood specimen / Unknown Venipuncture / Unknown 05/28/2025 2:31 PM EDT 05/28/2025 2:31 PM EDT us Chandra Crawford MD LAB BLOOD ORDERABLES Final Result [facility] [address] [place] [address], * (ABNORMAL) CBC auto differential (05/28/2025 2:31 PM EDT) WBC 12.3(H) 4.8 - 10.8 K/mcL LAB HEMETOLOGY METHOD 05/28/2025 5:04 PM EDT [facility] RBC 4.60 3.80 - 4.80 M/mcL LAB HEMETOLOGY METHOD 05/28/2025 5:04 PM EDT [facility] Hemoglobin 14.2 11.5 - 16.0 g/dL LAB HEMETOLOGY METHOD 05/28/2025 5:04 PM [facility] Hematocrit 43.2 35.0 - 47.0 % LAB HEMETOLOGY METHOD 05/28/2025 5:04 PM [facility] MCV 93.7 79.0 - 98.0 FL LAB HEMETOLOGY [facility]/28[facility]2025 5:[facility] MCH 30.8 27.0 - 32.0 pcg LAB HEMETOLOGY METHOD 05/28/2025 5:04 PM [facility] MCHC 32.9 32.0 - 37.0 g/dL LAB HEMETOLOGY METHOD 05/28/2025 5:04 PM [facility] RDW 12.5 11.0 - 15.0 % LAB HEMETOLOGY METHOD 05/28/2025 5:04 PM [facility] Platelets 233 130 - 400 K/mcL LAB HEMETOLOGY METHOD 05/28/2025 5:04 PM [facility] MPV 12.2(H) 7.0 - 11.0 FL LAB HEMETOLOGY METHOD 05/28/2025 5:04 PM [facility] NRBC 0.0 <1.0 % LAB HEMETOLOGY METHOD 05/28/2025 5:04 PM [facility] NRBC Absolute 0.00 <0.10 K/mcL LAB HEMETOLOGY METHOD 05/28/2025 5:04 PM [facility] Neutrophils Relative 69.4 % LAB HEMETOLOGY METHOD 05/28/2025 5:04 PM [facility] Lymphocytes Relative 23.8 % LAB HEMETOLOGY METHOD 05/28/2025 5:04 PM EDT [facility] Monocytes Relative 5.0 % LAB HEMETOLOGY [facility]/28[facility]2025 [facility] Eosinophils Relative 1.1 % LAB HEMETOLOGY METHOD 05/28/2025 5:04 PM [facility] Basophils Relative 0.4 % LAB HEMETOLOGY METHOD [facility]/28[facility]2025 5:[facility] Immature Granulocytes Relative 0.3 % LAB HEMETOLOGY METHOD 05/28/2025 5:04 PM EDT [facility] Neutrophils Absolute 8.52(H) 1.50 - 7.00 K/mcL LAB HEMETOLOGY METHOD 05/28/2025 5:04 PM [facility] Lymphocytes Absolute 2.93 1.00 - 5.00 K/mcL LAB HEMETOLOGY METHOD 05/28/2025 5:[facility] Monocytes Absolute 0.62 0.20 - 1.00 K/mcL LAB HEMETOLOGY METHOD 05/28/2025 5:04 PM [facility] Eosinophils Absolute 0.14 0.00 - 0.50 K/mcL LAB HEMETOLOGY METHOD 05/28/2025 5:04 PM [facility] Basophils Absolute 0.05 0.00 - 0.20 K/mcL LAB HEMETOLOGY METHOD 05/28/2025 5:04 PM [facility] Immature Granulocytes Absolute 0.04(H) 0.00 - 0.03 K/mcL LAB HEMETOLOGY METHOD 05/28/2025 5:04 PM [facility] Blood Venous blood specimen / Unknown Venipuncture / Unknown 05/28/2025 2:31 PM EDT 05/28/2025 2:31 PM EDT us Chandra Crawford MD LAB BLOOD ORDERABLES Final Result [facility] [address] [place] [address], [place] [phone] * Hemoglobin A1c (05/28/2025 2:31 PM EDT) Pathologist [facility] Hemoglobin A1C 5.1 <6.5 % LAB CHEMISTRY METHOD 05/29/2025 10:34 AM EDT [facility] Mean Bld Glu Estim. 100 mg/dL LAB CHEMISTRY METHOD 05/29/2025 10:34 AM EDT [facility] Blood Venous blood specimen / Unknown Venipuncture / Unknown 05/28/2025 2:31 PM EDT 05/28/2025 2:31 PM EDT Chandra Crawford MD LAB BLOOD ORDERABLES Final Result Performing Organization Address [facility]/ZIP Co de Phone Number [facility] [address] [place] [address], [place] [phone] * (ABNORMAL) Comprehensive metabolic panel (05/28/2025 2:31 PM EDT) [facility] Sodium 135 133 - 145 mmol/L LAB CHEMISTRY METHOD 05/28/2025 5:08 PM T [facility] Potassium 4.4 3.5 - 5.5 mmol/L LAB CHEMISTRY METHOD 05/28/2025 5:08 PM T [facility] Chloride 103 96 - 110 mmol/L LAB CHEMISTRY METHOD 05/28/2025 5:08 PM [facility] CO2 26 21 - 32 mmol/L LAB CHEMISTRY METHOD 05/28/2025 5:08 PM T [facility] Anion Gap 6 3 - 11 LAB CHEMISTRY METHOD 05/28/2025 5:08 PM [facility] Glucose 81 70 - 100 mg/dL LAB CHEMISTRY METHOD 05/28/2025 5:08 PM EDT [facility] BUN 8 5 - 25 mg/dL LAB CHEMISTRY METHOD 05/28/2025 5:08 PM [facility] Creatinine 0.72 0.50 - 1.10 mg/dL LAB CHEMISTRY METHOD 05/28/2025 5:08 PM [facility] eGFR 115 >=60 mL/min/1. 73m2 LAB CHEMISTRY METHOD 05/28/2025 5:08 PM [facility] Comment:Calculation based on the Chronic Kidney Disease Epidemiology Collaboration (CKD-EPI) equation refit without adjustment for race. BUN/Creatinine Ratio 11.1 LAB CHEMISTRY METHOD 05/28/2025 5:08 PM [facility] Calcium 9.5 8.5 - 10.5 mg/dL LAB CHEMISTRY METHOD 05/28/2025 5:08 PM [facility] AST (SGOT) 71(H) 10 - 42 unit/L LAB CHEMISTRY METHOD 05/28/2025 5:08 PM [facility] ALT (SGPT) 136(H) 10 - 60 unit/L LAB CHEMISTRY METHOD 05/28/2025 5:08 PM [facility] Alkaline Phosphatase 69 42 - 121 unit/L LAB CHEMISTRY METHOD 05/28/2025 5:08 PM [facility] Total Protein 7.6 6.0 - 8.0 g/dL LAB CHEMISTRY METHOD 05/28/2025 5:08 PM [facility] Albumin 4.2 3.2 - 5.0 g/dL LAB CHEMISTRY METHOD 05/28/2025 5:08 PM [facility] Total Bilirubin 0.5 0.0 - 1.4 mg/dL LAB CHEMISTRY METHOD 05/28/2025 5:08 PM [facility] Blood Venous blood specimen / Unknown Venipuncture / Unknown 05/28/2025 2:31 PM EDT 05/28/2025 2:31 PM EDT us Cahndra Crawford MD LAB BLOOD ORDERABLES Final Result [facility] [address] [place] [address], [place] [phone] * Cervical Cancer Screening: HPV (03/22/2021) Cervical Cancer Screening: HPV no interpretation , abstracted Historical Provider HEALTH MAINTENANCE Final Result * HIV Screening (03/16/2021) HIV Screening abstracted Historical Provider HEALTH MAINTENANCE Final Result * Hepatitis C Screening (03/16/2021) Hepatitis C Screening abstracted Historical Provider HEALTH MAINTENANCE Final Result from Last 3 Months or Most Recently Relevant to Health Maintenance Insurance [facility] Care Teams Terrazzo Worker Helper Relationship Specialty Start Date End Date Chandra Crawford MD [address] [place] [address] PCP - General 02/02/23
--- OUTSIDE RECORDS SUMMARY | 2025-06-24 13:03 | XMS_ITS | Encounter Summary ---
Author Organization [facility] Address [address] [place] [address] Care Team Providers Care E Commerce Retailer Name Role Phone Chandra Crawford MD Primary Care Provider [phone] Encounter Details Date Type Department Care Team (Latest Contact Info) Description 06/23/2025 Plan of Care Documentation Outpatient Rehabilitation [address] [address] Social History Tobacco Use Types Packs/Day Years [...] your loved ones. For example, child care worker or elderly care for an older adult? [...] of this encounter Progress Notes * Dar Seo, PT - 06/23/2025 4:32 PM EDT Images from the original note were not included. [facility] - Outpatient Physical Therapy-[place] PHYSICAL THERAPY EVALUATION Date: 06/23/2025 Visit Number: 1 Patient Name: Precious Kraft : 1995 Age: 30 y.o. Gender: female Diagnosis: ICD-10-CM ICD-9-CM 1. Chronic low back pain, unspecified back pain laterality, unspecified whether sciatica present M54.50 724.2 Ambulatory referral to Physical Therapy and Athletic Training G89.29 338.29 Date of [] Onset/Injury/Surgery [x] Referral: 05/21/2025 Referring Provider: Chandra Crawford MD Insurance: Payor: [employer] / Plan: [employer] HMO / Product Type: *No Product type* / Patient identified by: Dar Seo PT Language: Speaks and understands Kazakh as preferred language with no roll examiner required Kazakh Chart Reviewed: Yes Medications: Current Outpatient Medications [...] past surgical history that includes Appendectomy (05/06); [place] tooth extraction; and Upper gastrointestinal endoscopy (12/10/2020). [...] or injury. Saw Dr. Crawford on 01/31/[facility] and was discussed. Messaged her [...] bowel/bladder dysfunction. Best: 10/11 Current: 10/11 Worst: 610 Quality: achy tight to sharp stab - [...] W/D is in the apartment. 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 Reviewed [...] Trunk Ext/inc Lordosis to HEP (HEP2Go Code [id number])) Education Provided To: Patient utilizing Explanation, Demonstration, [...] worst w/ and after cumulative ADLs, work Production Clerks Supervisor Goals: (12 visits) Demo I w/ final [...] completed by Dar Seo PT OUTPATIENT REHABILITATION [address] Dept: [phone] Dept PATIENT NAME: Precious Kraft : 1995 Referring provider : Chandra Crawford MD documented in this encounter Plan of Treatment Upcoming Encounters Date Type Department Care Team (Late st Contact Info) Description 09/18/2025 2:40 PM EST Consult Gastroenterology - [place] [facility] [address] [facility] [address] [place] [id number] Hernando Campo MD [address] [place] [phone] documented as of this encounter Visit Diagnoses Not on filedocumented in this encounter Additional Health Concerns Assessment Noted Time PHQ-9 Depression Total Score: 0 02/01/20 25 3:00 PM EDT documented as of this encounter Care Teams E Commerce Retailer Relationship Specialty Start Date End Date Chandra Crawford MD [address] [place] [address] PCP - General 02/02/23 documented as of this encounter
--- OUTSIDE RECORDS SUMMARY | 2025-06-24 13:03 | XMS_ITS | Encounter Summary ---
Author Organization [facility] Address [address] [place] [address] Care Team Providers Care Surveyor Geodetic Name Role Phone Chandra Crawford MD Primary Care Provider Unav ailable Encounter Details Date Type Department Care Team (Late st Contact Info) Description 06/04/2024 Scanned Document [facility] [address] [facility] [address] [place] [address] Provider, Generic Social History Tobacco [...] on filedocumented in this encounter Care Teams Surveyor Geodetic Relationship Specialty Start Date End Date Chandra Crawford MD PCP - General Medicine Hospitalist 11/29/24 documented as of this encounter
--- OUTSIDE RECORDS SUMMARY | 2025-06-24 13:04 | XMS_ITS | Encounter Summary ---
Author Organization [facility] Address [address] [place] [address] Care Team Providers Care Community Education Coordinator Name Role Phone Chandra Crawford MD Primary Care Provider Unav ailable Encounter Details Date Type Department Care Team (Late st Contact Info) Description 11/27/2024 Telephone [facility] [address] [phone] Cydney Pang PA [address] [place] [address] Social History Tobacco Use Types Packs/Day Years [...] on filedocumented in this encounter Care Teams Community Education Coordinator Relationship Specialty Start Date End Date Chandra Crawford MD PCP - General Medicine Hospitalist 11/29/24 documented as of this encounter
--- OUTSIDE RECORDS SUMMARY | 2025-06-24 13:04 | XMS_ITS | Encounter Summary ---
Author Organization [facility] Address [address] [place] [address] Care Team Providers Care Rock Dust Sprayer Name Role Phone Chandra Crawford MD Primary Care Provider Unav ailable Encounter Details Date Type Department Care Team (Late st Contact Info) Description 11/29/2024 Scanned Document [facility] [address] [facility] [address] [place] [address] Provider, Generic Social History Tobacco Use Types Packs/Day Years Used Date Smoking Tobacco: Never Smokeless Tobacco: Never Alcohol Use Standard Drinks/Week Comments Not Currently 0 (1 standard drink = 0.6 oz pur e alcohol) Comments No Sex and Gender Information Value Date Recorded Sex Assigned at Not on file Legal Sex Female 10:35 AM EDT Gender Identity Not on file Sexual Orientation Not on file documented as of this encounter Plan of Treatment Not on file documented as of this encounter Visit Diagnoses Not on filedocumented in this encounter Care Teams Rock Dust Sprayer Relationship Specialty Start Date End Date Chandra Crawford MD PCP - General Medicine Hospitalist 11/29/24 documented as of this encounter
--- OUTSIDE RECORDS SUMMARY | 2025-06-24 13:04 | XMS_ITS | Clinical Summary ---
Author Organization [facility] Address [address] [place] [address] Care Team Providers Care Copper Etcher Name Role Phone Chandra Crawford MD Primary Care Provider Unav ailable Allergies No known active allergies Medications LORazepam (ATIVAN) 1 MG tablet Take 1 mg by mouth 3 times daily (every 8 hours) as needed for anxiety. Active tobramycin (TOBREX) 0.3 % ophthalmic solutionIndications :Acute bacterial conjunctivitis of both eyes 1 gtt in affected eye(s) qid x 5 days 5 mL 4 Active predniSONE (DELTASONE) 20 MG tabletIndications:A cute cough,Acute bacterial bronchitis Take 2 tablets (40 mg total) by mouth daily. With food. 10 tablet 5 Active proMETHAZINE-dextro methorphan (proMETHAZINE-DM) 6.25-15 MG/5ML syrupIndications:Ac kaibab cough Take 5 mL by mouth 4 times daily (every 6 hours) as needed for cough. 120 mL 5 Active Active Problems Problem Noted Date Diagnosed Date Family history of substance abuse 01/27/2021 Anxiety 01/13/2021 Panic attacks 01/13/2021 Fatty liver 10/15/2020 Abdominal bloating 09/29/2020 Alcohol abuse 09/29/2020 Chronic diarrhea 09/29/2020 Hyperlipidemia 08/30/2019 Allergic rhinitis 02/12/2015 Overview (06/03/2024): Zyrtec and alaway gtts 02/12 Low back pain 02/12/2015 Overview (06/03/2024): 09/13 - xrays neg, ref to PT Scoliosis 12/06/2012 Overview (06/03/2024): Mild at PE 12/12 Nevus 05/04/2009 Overview (06/03/2024): Ref to derm 03/10, 12/12, 02/12 Social History Tobacco Use Types Packs/Day Years [...] on file Sexual Orientation Not on file Last Filed Vital Signs Vital Sign Reading Time Taken Comments Blood Pressure 127/91 11/29/2024 12:11 PM EST Pulse 96 11/29/2024 12:11 PM EST Temperature 36.9 C (98.5 F) 11/29/2024 12:11 PM EST Respiratory Rate 16 06/04/2024 11:03 AM EDT Oxygen Saturation 98% 11/29/2024 12:11 PM EST Inhaled Oxygen Concentration - - Weight 89.4 kg (197 lb) 11/29/2024 12:11 PM EST Height 162.6 cm (5' 4 ) 11/29/2024 12:11 PM EST Body Mass Index 33.81 11/29/2024 12:11 PM EST Plan of Treatment Health Maintenance Due Date Last Done Comments Hepatitis C Virus Screening 1995 HIV Screening 2007 DTaP/Tdap/Td Vaccines (1 - Tdap) 2013 Hepatitis B Vaccines (1 of 3 - 19+ 3-dose series) 2013 Pap Smear (Ages 21-65) 2015 HPV Vaccines (1 - 3-dose SCD M series) 2021 Influenza Vaccine 05/02/2025 07/20/2011 COVID-19 Vaccine ( - 2023-2 5 season) 2025 Pneumococcal Vaccine: Pediat mikal (0-5 Years) and At-Risk Patients (6 to 49 Years) Aged Out No longer eligible b ased on patient's age to complete this topic Insurance [id number] [place] [address] Care Teams Copper Etcher Relationship Specialty Start Date End Date Chandra Crawford MD PCP - General Medicine Hospitalist 11/29/24
--- OUTSIDE RECORDS SUMMARY | 2025-06-24 13:04 | XMS_ITS | Encounter Summary ---
Author Organization [facility] Address [address] [place] [address] Care Team Providers Care Youth Manager Name Role Phone Chandra Crawford MD Primary Care Provider Unav ailable Encounter Details Date Type Department Care Team (Late st Contact Info) Description 11/29/2024 Scanned Document [facility] [address] [facility] [address] [place] [address] Provider, Generic Social History Tobacco [...] on filedocumented in this encounter Care Teams Youth Manager Relationship Specialty Start Date End Date Chandra Crawford MD PCP - General Medicine Hospitalist 11/29/24 documented as of this encounter
== END 2025-06-24 11:14 | disposition home or self-care (01) ==
LOC: HO.PMC 10:40
PROVIDERS: PCP Internal Medicine; Visit Provider Nurse Practitioner Family
DX: M51.16 Intervertebral disc disorders with radiculopathy, lumbar region (principal); M54.50 Low back pain, unspecified
CPT/HCPCS: 99204